=== PATIENT | female | born 1995 | race Two or more races ===

== ENCOUNTER 2020-12-21 10:41 | Emergency (ER) | payer OTHER ==
[~2020-12-21] VITALS: Ht 154.9 cm; Wt 77.1 kg
== END 2020-12-21 11:47 | disposition home or self-care (01) ==
LOC: ER 10:41
DX: S80.212A Abrasion, left knee, initial encounter (principal); V00.141A Fall from scooter (nonmotorized), initial encounter; Y92.488 Other paved roadways as the place of occurrence of the external cause; Y93.I9 Activity, other involving external motion; Y99.8 Other external cause status